=== PATIENT | female | born 1990 | race Caucasian/White ===

== ENCOUNTER 2018-07-11 12:31 | Emergency (ER) | payer OTHER ==
[2018-07-11 13:07] VITALS: BP 110/66
--- NOTE | 2018-07-11 13:25 | UC ---
Skin Complaint HPI - HPI Summary HPI Summary: 28 y/o female presents to the urgent care c/o states pulled a tick out of left shoulder yesterday, was attached no more than 24 hours. - History of Current Complaint Chief Complaint: UCGeneralIllness Time Seen by Provider: 07/11/18 13:22 Stated Complaint: TICK BITE Hx Obtained From: Patient Hx Last Menstrual Period: 06/30/18 Onset/Duration: Gradual Onset, Lasting Days - 2 days, Resolved Skin Exposure Onset/Duration: Days Ago - 2 days Timing: Constant Onset Severity: Mild Current Severity: Mild Pain Intensity: 2 - at touch Pain Scale Used: 0-10 Numeric Location: Discrete - left shoulder tick bite Character: Pain, Redness Aggravating Factor(s): Touch Alleviating Factor(s): Other - removal of tick Associated Signs & Symptoms: Positive: Rash, Tenderness. Negative: Fever, Chills, Chest Pain, Drainage Related History: Possible Reaction to: Insect - Allergy/Home Medications Allergies/Adverse Reactions: Allergies Allergy/AdvReac Type Severity Reaction Status Date / Time amoxicillin Allergy Hives Verified 07/11/18 13:03 sulfamethoxazole Allergy Hives Verified 07/11/18 13:03 Home Medications: Home Medications NK [No Home Medications Reported] 07/11/18 [History Confirmed 07/11/18] Review of Systems Constitutional: Negative Skin: Rash - left shoulder tick bite Eyes: Negative ENT: Negative Respiratory: Negative Cardiovascular: Negative Gastrointestinal: Negative Genitourinary: Negative Motor: Negative Neurovascular: Negative Musculoskeletal: Negative Neurological: Negative Psychological: Negative Is Patient Immunocompromised?: No All Other Systems Reviewed And Are Negative: Yes PMH/Surg Hx/FS Hx/Imm Hx Previously Healthy: Yes - Pt denies PMHX - Surgical History Surgical History: Yes Surgery Procedure, Year, and Place: tonsilectomy. ectopic - Family History Known Family History: Positive: Cardiac Disease, Hypertension, Diabetes - Social History Occupation: Employed Full-time Lives: With Family Alcohol Use: Weekly Substance Use Type: None Smoking Status (MU): Heavy Every Day Tobacco Smoker Type: Cigarettes Amount Used/How Often: 1/2 pack day Length of Time of Smoking/Using Tobacco: 8 yrs Have You Smoked in the Last Year: Yes Household Exposure Type: Cigarettes - Immunization History Most Recent Tetanus Shot: up to date -states w/in 5 years Physical Exam - Summary Physical Exam Summary: Vital Signs Reviewed: Yes General: well developed, well nourished female sitting in the examining table w/ o any apparent distress. Eyes: Positive: Conjunctiva Clear - PERRLA, EOMI ENT: Positive: Normal ENT inspection, Hearing grossly normal, Pharynx normal, TMs normal Neck: Positive: Supple, Nontender, No Lymphadenopathy Respiratory: Positive: Chest nontender, Lungs clear, Normal breath sounds Cardiovascular: Positive: RRR, No Murmur, Pulses Normal Abdomen Description: Positive: Nontender, No Organomegaly, Soft. Negative: CVA Tenderness (R), CVA Tenderness (L) Bowel Sounds: Positive: Present Musculoskeletal: Positive: Strength Intact, ROM Intact, No Edema Neurological Exam: Normal Psychological Exam: Normal Skin: Positive: rashes - Left shoulder around left clavicle with tick bite with surrounding erythema, non tender to palpation. tick no longer present, no swelling or drainage observed. Triage Information Reviewed: Yes Vital Signs: Initial Vital Signs Temp 98.1 F 07/11/18 13:01 Pulse 60 07/11/18 13:01 Resp 16 07/11/18 13:01 BP 110/66 07/11/18 13:01 Pulse Ox 99 07/11/18 13:01 Course/Dx - Course Course Of Treatment: Pt w/ a tick bite just belowe the left clavicle, tick no longer present on examination. Area cleaned and Bacitracin oint antibiotic prophylaxis with Doxycycline given to the patient to prevent lyme Disease.. Pt tolerated well medication. Pt advised to observe the area for the development or Erythema Migrans for upto 30 days following exposure. Advised if he develops fever or erythema Migrans to return to the clinic or PCP for further treatment .Pt understood and agreed with plan of care. - Differential Diagnoses - Skin Complaint Differential Diagnoses: Abscess, Cellulitis, Local Allergic Reaction, Tick Born Illness, Urticaria, Other - insect bite, bee sting - Diagnoses Provider Diagnoses: 1- Left shoulder tick bite Discharge - Sign-Out/Discharge Documenting (check all that apply): Patient Departure All imaging exams completed and their final reports reviewed: No Studies - Discharge Plan Condition: Stable Disposition: HOME Patient Education Materials: Tick Bite (ED) Referrals: Jazmine Early MD [Primary Care Provider] - 2 Weeks [facility],Huber Zamorano [Medical Doctor] - If Needed Additional Instructions: 1- Please observe the area for the development or Erythema Migrans for upto 30 days following exposure. Components of the tick saliva can cause transient erythema that should not be confused with Erythema Migrans. If you develop the bull's eye rash, fever, joint pains please return to the urgent care or f/u with your PCP for further management. 2-Antibiotic prophylaxis with Doxycycline was given to you today to prevent lyme Disease. Lyme serology can be drawn in 2 weeks with your PCP to r/o Lyme disease since there is probability of negative results at early exposure. - Billing Disposition and Condition Condition: STABLE Disposition: Home
[2018-07-11] MEDS ORDERED: DOXYcycline CAP(*) 100 MG PO ONE (13:31)
== END 2018-07-11 13:43 | disposition home or self-care (01) ==
LOC: UCCORT 12:31
DX: S40.262A Insect bite (nonvenomous) of left shoulder, initial encounter (principal); W57.XXXA Bitten or stung by nonvenomous insect and other nonvenomous arthropods, initial encounter; Y93.9 Activity, unspecified; Y92.9 Unspecified place or not applicable; Z88.1 Allergy status to other antibiotic agents; Z88.0 Allergy status to penicillin; F17.210 Nicotine dependence, cigarettes, uncomplicated
CPT/HCPCS: 99212; A9270-GY; G0463

== ENCOUNTER 2019-08-16 17:04 | Emergency (ER) | payer OTHER ==
[2019-08-16 17:35] VITALS: BP 126/76
--- NOTE | 2019-08-16 19:13 | UC ---
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 Increasing swelling with redness and pain. Did have some white drainage. " -no fevers/chills. -started from irritation from handle from spray bottle that started 2 wks ago. swelling and redness worseed 2 d ago. -can move her fingers and feel her fingers. not turning blue of cold. -denies . has nexplonon - History of Current Complaint Chief Complaint: UCUpperExtremity Time Seen by Provider: 08/16/19 19:05 Stated Complaint: R HAND CONCERN Hx Last Menstrual Period: 06/30/18 Pain Intensity: 8 - Allergy/Home Medications Allergies/Adverse Reactions: Allergies Allergy/AdvReac Type Severity Reaction Status Date / Time amoxicillin Allergy Hives Verified 08/16/19 17:33 sulfamethoxazole Allergy Hives Verified 08/16/19 17:33 PMH/Surg Hx/FS Hx/Imm Hx Previously Healthy: Yes - Surgical History Surgical History: Yes Surgery Procedure, Year, and Place: tonsilectomy. ectopic - Family History Known Family History: Positive: Cardiac Disease, Hypertension, Diabetes - Social History Alcohol Use: Occasionally Substance Use Type: None Smoking Status (MU): Heavy Every Day Tobacco Smoker Type: Cigarettes Amount Used/How Often: 1/2 pack day Length of Time of Smoking/Using Tobacco: 8 yrs Have You Smoked in the Last Year: Yes Household Exposure Type: Cigarettes - Immunization History Most Recent Tetanus Shot: up to date -states w/in 5 years Review of Systems All Other Systems Reviewed And Are Negative: Yes Constitutional: Positive: Negative. Negative: Fever, Chills, Fatigue Skin: Positive: Rash ENT: Positive: Negative Respiratory: Positive: Negative Cardiovascular: Positive: Negative Gastrointestinal: Positive: Negative. Negative: Vomiting, Diarrhea, Nausea Genitourinary: Positive: Negative Motor: Positive: Negative Neurovascular: Positive: Negative Musculoskeletal: Positive: Negative Neurological: Positive: Negative Psychological: Positive: Negative Is Patient Immunocompromised?: No Physical Exam Triage Information Reviewed: Yes Appearance: Well-Appearing, No Pain Distress, Well-Nourished - very pleasant Vital Signs: Initial Vital Signs Temp 98.7 F 08/16/19 17:30 Pulse 78 08/16/19 17:30 Resp 15 08/16/19 17:30 BP 126/76 08/16/19 17:30 Pulse Ox 99 08/16/19 17:30 Eye Exam: Normal ENT Exam: Normal Respiratory Exam: Normal Respiratory: Positive: Lungs clear, Normal breath sounds, No respiratory distress, No accessory muscle use Cardiovascular Exam: Normal Cardiovascular: Positive: RRR, No Murmur Musculoskeletal Exam: Normal Musculoskeletal: Positive: Strength Intact, ROM Intact Neurological Exam: Normal Psychological Exam: Normal Skin: Positive: Other - right hand w/ < 1 cm SC abscess. no fluctuant. no dc/ slightly warm to touch. no streaks or dc. tender. CR brisk. senstaion intact in fingertips. CR brisk. Course/Dx - Course Course Of Treatment: Rt hand abscess - not ready for I&D. abscess is small. no dc. no e/o compartment syndrome -doxy for MRSA coveraghe. sulfa allergy. denies preg (nexplonon) - Differential Diagnoses - Skin Complaint Differential Diagnoses: Abscess, Cellulitis, MRSA - Diagnoses Provider Diagnosis: Abscess of hand, right Discharge ED - Sign-Out/Discharge Documenting (check all that apply): Patient Departure All imaging exams completed and their final reports reviewed: No Studies - Discharge Plan Condition: Stable Disposition: HOME Prescriptions: Doxycycline Monohydrate 100 mg PO BID #20 cap Patient Education Materials: Abscess (ED) Referrals: Jazmine Early MD [Primary Care Provider] - 5 Days Additional Instructions: Make sure to take a probiotic daily while you are on jorden antibiotic. You can buy these OTC - such as [employer], [employer] or [employer], or eat yogurt. You should go to the ER if your symptoms worsen, or develop fevers/chills, cold/ blue fingers or decreased range of motion or sensation. You make need it to be drained if it worsens - Billing Disposition and Condition Condition: STABLE Disposition: Home
== END 2019-08-16 19:25 | disposition home or self-care (01) ==
LOC: UCCORT 17:04
DX: L02.511 Cutaneous abscess of right hand (principal); F17.210 Nicotine dependence, cigarettes, uncomplicated; Z88.0 Allergy status to penicillin
CPT/HCPCS: 99212; G0463